=== PATIENT | female | born 1980 | race Caucasian/White ===

== ENCOUNTER → 2019-07-28 08:54 | Outpatient (CLI) | payer BC, SELFPAY ==
--- NOTE | ~2019-07-28 | CT_ITS ---
EXAMINATION: CT soft tissue neck chest wo DATE: 07/28/2019 09:32 INDICATION: R22.1 Localized swelling, mass and lump, neck TECHNIQUE: Computed tomography (CT) of the neck and chest was performed without intravenous contrast. Additional 3D reconstructions utilizing coronal maximum intensity projection (MIP) were performed. The dose-length product was 829.75 mGy-cm. COMPARISON: None FINDINGS: Neck: The BB overlies the right parotid gland which has a convex mildly bulging peripheral contour as oppos ed to the relatively straight peripheral contour of the contralateral left parotid gland which extend s further AP than the right gland. Both parotid glands demonstrate a normal appearance and appear rel atively symmetric in overall size. The submandibular glands also appear normal and symmetric. There a re scattered normal-sized lymph nodes in the neck, no lymphadenopathy. No masses identified. Thyroid gland is normal. Vasculature appears unremarkable on noncontrast imaging. Mild cervical spondylosis. Orbits are normal. Visualized mastoid air cells, middle ear cavities and paranasal sinuses are clear . Visualized portions of the brain are normal. Chest: Minimal dependent atelectasis in the bilateral lower lobes. No pneumonia/pulmonary infiltrates, suspi cious pulmonary nodules, pulmonary edema or pleural effusion. Heart size is normal. No pericardial ef fusion. Thoracic aorta is normal in caliber. No pathologically enlarged thoracic lymphadenopathy. Vis ualized upper abdomen is unremarkable. Bones are unremarkable. IMPRESSION: 1. Abnormal masses, fluid collections or pathologically enlarged lymphadenopathy. The lump of concern appears to correspond to the right parotid gland which appears normal and relatively symmetric in vo lume to the left gland but with a more prominent convex peripheral margin. Reviewed, dictated and finalized at location A. PROCESSING TECHNICIAN IMPRESSION: 1. Abnormal masses, fluid collections or pathologically enlarged lymphadenopath y. The lump of concern appears to correspond to the right parotid gland which a ppears normal and relatively symmetric in volume to the left gland but with a m ore prominent convex peripheral margin.
== END ==
PROVIDERS: PCP Family Medicine; Visit Provider Family Medicine
DX: R22.1 Localized swelling, mass and lump, neck (principal)
CPT/HCPCS: 70490; 71250

== ENCOUNTER → 2021-04-12 02:19 | Outpatient (CLI) | payer BC, SELFPAY ==
[2021-04-12 18:47] LABS: SARS-CoV-2 RNA PCR Positive
== END ==
PROVIDERS: Nurse Practitioner Gerontology; PCP Family Medicine; Visit Provider Family Medicine
DX: U07.1 COVID-19 (principal)
CPT/HCPCS: C9803; U0003; U0005

== ENCOUNTER → 2021-06-01 07:57 | Outpatient (CLI) | payer BC, SELFPAY ==
--- NOTE | ~2021-06-01 | MMUS_ITS ---
EXAMINATION: MM diagnostic dominique BI w blossom, US breast LT limited HISTORY: Palpable lump in the upper outer quadrant of the left breast TECHNIQUE: Craniocaudal, mediolateral, and mediolateral oblique 3-D tomosynthesis images of the left breast were performed and synthetic 2-D images were generated. CAD analysis was submitted and interpr eted. High resolution limited left breast ultrasound was performed. COMPARISON: 10/09/2017 BREAST PARENCHYMAL COMPOSITION: The breasts are heterogeneously dense, which may obscure small masses . FINDINGS: MAMMOGRAPHIC FINDINGS: There is no evidence of suspicious mass, calcification, or architectural distortion in either breast to suggest malignancy. There has been no suspicious interval change. No mammographic correlate is id entified for the reported palpable abnormality of the left breast. ULTRASOUND: There is no evidence of focal abnormal solid or cystic mass in the vicinity of the reported palpable abnormality of the left breast IMPRESSION: 1. No specific mammographic or sonographic correlate is identified for the reported palpable abnormal ity of concern. Further evaluation at this time should be based on clinical assessment. Continued fol low-up physical examination is recommended. 2. Recommend routine screening mammography beginning at age 40. BI-RADS Category 1: Negative Reviewed, dictated and finalized at location A. TARY INSPECTOR IMPRESSION: 1. No specific mammographic or sonographic correlate is identified for the repo rted palpable abnormality of concern. Further evaluation at this time should be based on clinical assessment. Continued follow-up physical examination is bette mmended. 2. Recommend routine screening mammography beginning at age 40. BI-RADS Category 1: Negative
== END ==
PROVIDERS: PCP Family Medicine; Visit Provider Nurse Practitioner
DX: N63.20 Unspecified lump in the left breast, unspecified quadrant (principal)
CPT/HCPCS: 76642; 77062; 77066; G0279

== ENCOUNTER 2022-04-03 10:32 | Outpatient (CLI) | payer BC, SELFPAY ==
--- NOTE | ~2022-04-03 | XR_ITS ---
EXAMINATION: XR chest 2V Exam Date/Time: 04/03/2022 10:41 WAFER FABRICATOR HISTORY: ANTERIOR LEFT BREAST/CHEST WALL PAIN Comparison: 01/15/2013. RESULT: Lines, tubes, and devices: None. Lungs and pleura: Clear. Cardiomediastinal silhouette: Stable. Other: No acute osseous or upper abdominal finding. IMPRESSION: No acute cardiopulmonary process. Reviewed, dictated and finalized at location K. R FABRICATOR
== END 2022-04-03 10:33 | disposition home or self-care (01) ==
LOC: ANHIMG 10:34
PROVIDERS: PCP Family Medicine; Visit Provider Family Medicine
DX: R09.89 Other specified symptoms and signs involving the circulatory and respiratory systems (principal)
CPT/HCPCS: 71046

== ENCOUNTER 2022-05-04 09:31 | Outpatient (CLI) | payer BC, SELFPAY ==
--- NOTE | ~2022-05-04 | XR_ITS ---
EXAMINATION: XR abdomen/kub 1V INDICATION: Bilateral flank pain TECHNIQUE: Supine views of the abdomen were obtained on 2 radiographs. COMPARISON: None FINDINGS: The bowel gas pattern is normal. There is a moderate volume of colonic stool. The visualize d osseous structures are unremarkable. An IUD is noted. IMPRESSION: 1. No radiographic correlate for the patient's symptoms. Reviewed, dictated and finalized at location A. TATION MANAGER
[2022-05-04 10:29] LABS: Basophils Absolute Auto 0.1 K/mm3 (0.0-0.1); Basophils Percent Auto 0.9 % (0.2-1.2); Eosinophils Absolute Auto 0.2 K/mm3 (0-0.3); Eosinophils Percent Auto 2.7 % (0-4.4); Hematocrit 42.4 % (37.0-47.0); Hemoglobin 13.8 g/dL (12.0-15.0); Immature Granulocyte Absolute 0.01 K/mm3 (0.00-0.031); Immature Granulocyte Percent A 0.1 % (0-0.5); Lymphocytes Absolute Auto 2.13 K/mm3 (0.9-3.2); Lymphocytes Percent Auto 30.6 % (18.3-44.2); Mean Corpuscular HGB Conc 32.5 g/dl (32-36); Mean Corpuscular Hemoglobin 30.3 pg (26-34); Mean Platelet Volume 12.9 fl (7.4-10.4); Monocytes Absolute Auto 0.6 K/mm3 (0.1-0.6); Monocytes Percent Auto 8.1 % (2.6-8.5); Neutrophils Percent Auto 57.6 % (45.5-73.1); Platelet Count Result 195 k/mm3 (150-375); Red Blood Count 4.56 M/mm3 (4.2-5.4); Red Cell Distribution Width 12.7 % (11.5-14.5)
[2022-05-04 10:42] LABS: Alanine Aminotransferase 20 U/L (6-35); Albumin Level 4.4 g/dL (3.5-5.1); Alkaline Phosphatase 95 U/L (38-126); Anion Gap 6 mmol/L (8-16); Aspartate Amino Transferase 24 U/L (14-36); Bilirubin,Total 0.4 mg/dL (0.2-1.3); Blood Urea Nitrogen 14 mg/dL (7-17); Carbon Dioxide 29 mmol/L (22-30); Chloride 102 mmol/L (98-107); Estimated Glomerular Filt Rate > 60; Glucose 88 mg/dL (65-110); Potassium 4.2 mmol/L (3.4-5.0); Sodium 137 mmol/L (137-145)
[2022-05-04 11:20] LABS: Hemoglobin A1C 5.3 % (<5.7)
== END 2022-05-04 09:32 | disposition home or self-care (01) ==
LOC: ANHIMG 09:35
PROVIDERS: PCP Family Medicine; Visit Provider Physician Assistant
DX: R10.9 Unspecified abdominal pain (principal); R63.1 Polydipsia
CPT/HCPCS: 36415; 74018; 80053; 83036; 85025

== ENCOUNTER 2022-07-04 15:06 | Outpatient (CLI) | payer OTHER, SELFPAY ==
--- NOTE | ~2022-07-04 | XR_ITS ---
Lumbosacral Spine: AP and lateral views Clinical History: Pain Findings: The normal lordotic curve is maintained. The vertebral bodies and posterior elements are i ntact. The intervertebral disc spaces are preserved. There is minimal facet arthropathy at L4-L5 and L5-S1. The sacroiliac joints are normally outlined. Impression: Minimal facet joint arthropathy at the lower lumbar spine, as detailed above. Reviewed, dictated and finalized at location M. UP WORKER Impression: Minimal facet joint arthropathy at the lower lumbar spine, as detailed above.
--- NOTE | ~2022-07-04 | XR_ITS ---
Cervical Spine: AP, lateral, open-mouth views Clinical History: Pain Findings: The normal lordotic curve is maintained. The vertebral bodies and posterior elements appea r intact. The intervertebral disc spaces are well maintained. Pre-vertebral soft tissues are unremar kable. Impression: No significant abnormality is seen. Reviewed, dictated and finalized at [facility]. TOR MEDICAL CLAIMS Impression: No significant abnormality is seen.
--- NOTE | ~2022-07-04 | XR_ITS ---
Thoracic spine: Clinical Indication: Pain AP and lateral views were performed. No fracture is seen. There is normal alignment of the vertebrae. The intervertebral disc spaces appe ar normal. Paravertebral soft tissues appear normal. Impression: No significant abnormalities noted. Reviewed, dictated and finalized at [facility]. IGURATION ENGINEER Impression: No significant abnormalities noted.
== END 2022-07-04 15:07 | disposition home or self-care (01) ==
PROVIDERS: PCP Family Medicine; Visit Provider Nurse Practitioner Gerontology
DX: M54.9 Dorsalgia, unspecified (principal)
CPT/HCPCS: 72040; 72070; 72100

== ENCOUNTER 2022-08-15 10:05 | Emergency (ER) | payer BC, SELFPAY ==
--- NOTE | ~2022-08-15 | XR_ITS ---
XR chest 2V DATE: 08/15/2022 10:30 INDICATION: Syncope, loss of consciousness. TECHNIQUE: PA and lateral views COMPARISON: 04/13/2022 PA and lateral chest FINDINGS: Normal heart size. No hilar or mediastinal enlargement. No pulmonary infiltrate or consolidation, pleural effusion or pulmonary vascular congestion or pneumo thorax. IMPRESSION: No active cardiopulmonary disease Reviewed, dictated and finalized at location B.
--- NOTE | ~2022-08-15 | CT_ITS ---
Non-contrast Head CT History: Dizziness Technique: Axial non-contrast imaging of the brain was performed. Dose reduction technique was used on this scan by utilizing automated exposure control and iterative reconstruction technique. The dose -length product (DLP) was 605.33 mGy-cm. Findings: There is no evidence of intracranial hemorrhage, mass lesion, or acute infarct. Brain par enchyma appears normal. The ventricles and subarachnoid spaces are normal in size. The calvarium ap pears normal. The visualized paranasal sinuses and mastoid air cells are clear. Impression: No significant abnormality seen. Reviewed, dictated and finalized at location . Impression: No significant abnormality seen.
--- NOTE | 2022-08-15 10:08 | ECG_ITS ---
Measurements Intervals [place] Rate: 82 P: 33 IA: 150 QRS: -12 QRSD: 98 T: 22 QT: 364 QTc: 426 Interpretive Statements SINUS RHYTHM BORDERLINE R WAVE PROGRESSION, ANTERIOR LEADS BASELINE ARTIFACT- I, II, III BORDERLINE ECG NO PREVIOUS ECG AVAILABLE FOR COMPARISON Electronically Signed On 08-15-2022 14:16:37 CDT by Delgado Lozano D.O.
[2022-08-15 10:09] VITALS: BP 152/102; PULSE 80; RESP 16; TEMP 36.6; O2SAT 98
[2022-08-15 10:20] LABS: Basophils Percent Auto 0.7 % (0.2-1.2); Eosinophils Absolute Auto 0.2 K/mm3 (0-0.3); Eosinophils Percent Auto 3.6 % (0-4.4); Hematocrit 43.1 % (37.0-47.0); Hemoglobin 14.1 g/dL (12.0-15.0); Immature Granulocyte Absolute 0.01 K/mm3 (0.00-0.031); Immature Granulocyte Percent A 0.2 % (0-0.5); Lymphocytes Absolute Auto 1.43 K/mm3 (0.9-3.2); Lymphocytes Percent Auto 25.7 % (18.3-44.2); Mean Corpuscular HGB Conc 32.7 g/dl (32-36); Mean Corpuscular Hemoglobin 30.6 pg (26-34); Mean Corpuscular Volume 93.5 fl (80-100); Mean Platelet Volume 12.8 fl (7.4-10.4); Monocytes Absolute Auto 0.4 K/mm3 (0.1-0.6); Monocytes Percent Auto 7.4 % (2.6-8.5); Neutrophils Absolute Auto 3.5 K/mm3 (1.3-6.7); Neutrophils Percent Auto 62.4 % (45.5-73.1); Platelet Count Result 187 k/mm3 (150-375); Red Blood Count 4.61 M/mm3 (4.2-5.4); Red Cell Distribution Width 12.4 % (11.5-14.5); White Blood Count 5.6 K/mm3 (4.5-10.0)
[2022-08-15 10:31] LABS: Prothrombin Time 12.9 Seconds (11.1-14.7)
[2022-08-15 10:32] LABS: Partial Thromboplastin Time 28.8 SECONDS (22.3-36.8)
[2022-08-15 10:42] VITALS: BP 124/77; PULSE 70
[2022-08-15 10:43] VITALS: BP 121/90; PULSE 78
[2022-08-15 10:44] VITALS: BP 125/85; PULSE 86
[2022-08-15 10:45] LABS: Alanine Aminotransferase 20 U/L (6-35); Albumin Level 4.4 g/dL (3.5-5.1); Alkaline Phosphatase 87 U/L (38-126); Anion Gap 6 mmol/L (8-16); Aspartate Amino Transferase 24 U/L (14-36); Bilirubin,Total 0.7 mg/dL (0.2-1.3); Blood Urea Nitrogen 12 mg/dL (7-17); Carbon Dioxide 29 mmol/L (22-30); Chloride 105 mmol/L (98-107); Estimated CRCL calculation 102 ml/min; Estimated Glomerular Filt Rate > 60; Glucose 109 mg/dL (65-110); Lipase 277 U/L (23-300); Potassium 4.7 mmol/L (3.4-5.0); Sodium 140 mmol/L (137-145)
[2022-08-15 10:56] LABS: Troponin I < 0.012 ng/mL (0.000-0.034)
[2022-08-15] MEDS: SODIUM CHLORIDE 0.9% IV 1,000 ML 999 ML IV CONT (10:58)
--- NOTE | 2022-08-15 11:00 | ED.DIZZY ---
HPI - Dizziness General Chief Complaint: Dizziness Stated Complaint: near syncope Time Seen by Provider: 08/15/22 10:35 Source: patient Mode of arrival: EMS Limitations: no limitations History of Present Illness HPI Narrative: This is a 41 year old female that presents to the ER for near syncopal episode this morning while at work. Reports she was seated at her desk and started to feel lightheaded. Reports associated nausea and vomiting. She had a similar episode a couple weeks ago for which she was evaluated at another ER. Reports she still does have some mild lightheadedness. Otherwise denies any current symptoms. Denies fever, cough, chest pain, shortness of breath, or lower extremity edema. Related Data Home Medications Medication Instructions Recorded Confirmed levonorgestrel 21 mcg/24 hours (8 1 device intrauterine ONCE 07/22/20 07/22/22 yrs) 52 mg intrauterine device (Mirena) Allergies Allergy/AdvReac Type Severity Reaction Status Date / Time erythromycin base Allergy Mild unknown Verified 08/15/22 10:55 Review of Systems Review of Systems: CONSTITUTIONAL: Denies fever CARDIOVASCULAR: Denies chest pain, palpitations, or edema. RESPIRATORY: Denies cough or dyspnea. GASTROINTESTINAL: Reports nausea and vomiting. Denies abdominal pain All systems reviewed & are unremarkable except as noted in HPI and below PMFSH Past Medical History Medical History Acute serous otitis media, bilateral Acute sinusitis, unspecified Acute strain of neck muscle Chronic pansinusitis Chronic tonsillitis Contact dermatitis and eczema Dietary counseling and surveillance (09/02/17) Dizziness Dyshidrosis Head, face & neck injury Lateral dislocation of right patella, sequela Pain of right heel URI, acute Surgical History Surgical History Hx of tonsillectomy Family History Family History Mother Hypertension Sibling Patient's brother is in good health Family history of kidney disease Father Cerebrovascular accident, Onset Age: 53 Patient's father is Grandparent Family history of thyroid disease Social History Social History (Updated 07/12/22 @ 14:34 by Lisette Coto) Social History: Years smoked: 5 Smoking status: Former smoker Second hand tobacco smoke exposure: No Alcohol intake: current Alcohol use details: Occasionally Substance use: never Substance use type: does not use Lack of Transportation: YES Lack of Food: Never True Current Housing: I Have Housing Concerned About Future Housing: No Difficulty Paying Gas/Electric Bills: No Difficulty Paying for Meds: No Currently Unemployed: No Education: Master's Degree or Higher Difficulty w/ Childcare or Family Care: No Living arrangements: with family Occupation/Education: occupation Gender identity (if verbalized by the patient): Female Sexual Orientation (if Verbalized by the Patient): Straight or Heterosexual Spiritual care concerns: No Agree to blood products: Yes Exam Narrative: GENERAL: Well-appearing, well-nourished, and in no acute distress. HEAD: Normocephalic, atraumatic. EYES: EOMI. ENT: Nares clear, no rhinorrhea or epistaxis. Mucous membranes moist. Oropharynx without tonsillar hypertrophy exudate or other lesions. CHEST: Clear to auscultation. No respiratory distress. No wheezes rales or rhonchi HEART: Regular rate and rhythm. No murmur heard. Normal peripheral pulses. ABDOMEN: Soft, nontender, nondistended, normal active bowel sounds. EXTREMITIES: Normal range of motion. No edema. SKIN: Warm, dry, no rash. NEURO: No focal deficits. Alert and oriented x3. PSYCH: Normal mood and affect Course Course Emergency Course: Patient was updated on workup and agrees with plan of care Vital Signs Vital signs: Kimmy
[2022-08-15 14:17] VITALS: BP 129/89; PULSE 75; RESP 19; O2SAT 99
== END 2022-08-15 14:18 | disposition home or self-care (01) ==
PROVIDERS: General Practice; Emergency Provider Physician Assistant; PCP Family Medicine
DX: R55 Syncope and collapse (principal)
CPT/HCPCS: 36415; 70450; 71046; 80053; 81025; 83690; 84484; 85025; 85610; 85730; 93005; 96360; 99284; J7030

== ENCOUNTER 2022-09-05 02:50 | Day surgery (SDC) | payer BC, SELFPAY ==
[2022-08-21 13:30] VITALS: BMI 34.0
--- NOTE | 2022-09-04 14:58 | PM.HPGS ---
History of Present Illness History of Present Illness Consent: Risks, benefits, and alternatives have been discussed and questions answered. Patient agrees to proceed with procedure. Chief complaint: vomiting Narrative: Priya Colby is a 41 year old female who was referred because-repeated episodes of sharp epigastric pain accompanied by nausea and vomiting. She has been to the emergency room on 2 occasions with these symptoms. She has not had an occurrence since her last visit to the emergency room. She thought that this may be related to the fact that she had lost weight and probably does not need her blood pressure medicine anymore. On both occasions she became sweaty and nauseated before vomiting. She does not believe that she has had her gallbladder checked Review of Systems Review of Systems: All systems reviewed & are unremarkable except as noted in HPI and below PMFSH Past Medical History Medical History Acute serous otitis media, bilateral Acute sinusitis, unspecified Acute strain of neck muscle Benign essential HTN BMI 36.0-36.9,adult Chronic pansinusitis Chronic tonsillitis Contact dermatitis and eczema Dietary counseling and surveillance (09/02/17) Dizziness Dyshidrosis Head, face & neck injury Lateral dislocation of right patella, sequela Pain of right heel URI, acute Surgical History Surgical History Hx of tonsillectomy Family History Family History Mother Hypertension Sibling Patient's brother is in good health Family history of kidney disease Father Cerebrovascular accident, Onset Age: 53 Patient's father is Grandparent Family history of thyroid disease Social History Social History Social History: Years smoked: 5 Smoking status: Former smoker Tobacco type: cigarettes Second hand tobacco smoke exposure: No Alcohol intake: current Alcohol use details: Occasionally Substance use: never Substance use type: does not use Lack of Transportation: YES Lack of Food: Never True Current Housing: I Have Housing Concerned About Future Housing: No Difficulty Paying Gas/Electric Bills: No Difficulty Paying for Meds: No Currently Unemployed: No Education: Master's Degree or Higher Difficulty w/ Childcare or Family Care: No Living arrangements: with family Occupation/Education: occupation Gender identity (if verbalized by the patient): Female Sexual Orientation (if Verbalized by the Patient): Straight or Heterosexual Spiritual care concerns: No Agree to blood products: Yes Meds Home Medications and Allergies Home Medications Medication Instructions Recorded Confirmed Type levonorgestrel 21 mcg/24 hours (8 1 device intrauterine ONCE 07/22/20 08/21/22 History yrs) 52 mg intrauterine device (Mirena) cholecalciferol (vitamin D3) 125 125 mcg PO DAILY 08/16/22 08/21/22 History mcg (5,000 unit) capsule triamcinolone acetonide 55 mcg 1 spray intranasal DAILY 08/16/22 08/21/22 History nasal spray aerosol (Nasacort Allergy) zinc 50 mg tablet 50 mg PO DAILY 08/16/22 08/21/22 History Allergies Allergy/AdvReac Type Severity Reaction Status Date / Time erythromycin base Allergy Mild unknown Verified 09/05/22 08:10 Exam Const: General: alert Orientation/consciousness: patient oriented x3 Resp: Auscultation: clear to auscultation bilaterally Cardio: Rhythm: regular rhythm GI: GI Palp: Yes Soft to palpation and No Tenderness to palpation present (GI) Neuro: General: patient oriented x3 Assessment and Plan Assessment and plan (1) Vomiting: Code(s): R11.10 - Vomiting, unspecified Status: Acute Assessment and Plan: EGD with possible biopsy or dilatati
[2022-09-05 08:12] VITALS: BP 139/95; PULSE 79; RESP 18; TEMP 36.3; O2SAT 98
[2022-09-05] MEDS: LACTATED RINGERS 1,000 ML 150 ML IV CONT (08:20)
--- NOTE | 2022-09-05 08:29 | WPDANESEPPF ---
Anes - Initial Pre Proc Eval Procedure: Operation Date: 09/05/22 09:30 Proposed Procedures p Esophagogastroduodenoscopy - Stuart Chauhan MD Date/Time: 09/05/22 08:29 Surgeon: Stuart Chauhan MD Pre Op Diagnosis: vomiting Patient Data Age: 41 Gender: F Height: 1.73 m Weight: 101.4 kg Last Vital Signs Temp 36.3 C L 09/05/22 08:12 Pulse 79 09/05/22 08:12 Resp 18 09/05/22 08:12 BP 139/95 H 09/05/22 08:12 Pulse Ox 98 09/05/22 08:12 O2 Del Method Room Air 09/05/22 08:12 Allergies Allergy/AdvReac Type Severity Reaction Status Date / Time erythromycin base Allergy Mild unknown Verified 09/05/22 08:10 Home Medications Medication Instructions Recorded Confirmed Type levonorgestrel 21 mcg/24 hours (8 1 device intrauterine ONCE 07/22/20 08/21/22 History yrs) 52 mg intrauterine device (Mirena) cholecalciferol (vitamin D3) 125 125 mcg PO DAILY 08/16/22 08/21/22 History mcg (5,000 unit) capsule triamcinolone acetonide 55 mcg 1 spray intranasal DAILY 08/16/22 08/21/22 History nasal spray aerosol (Nasacort Allergy) zinc 50 mg tablet 50 mg PO DAILY 08/16/22 08/21/22 History Patient hx anesthesia problems: none Family hx anesthesia problems: none Results Review: All pre-operative results and documents have been reviewed as part of the pre-operative evaluation. [facility] Past Medical History Medical History (Updated 09/05/22 @ 08:30 by Khadar Aquino MD) Acute serous otitis media, bilateral Acute sinusitis, unspecified Acute strain of neck muscle Benign essential HTN BMI 36.0-36.9,adult Chronic pansinusitis Chronic tonsillitis Contact dermatitis and eczema Dietary counseling and surveillance (09/02/17) Dizziness Dyshidrosis Head, face & neck injury Lateral dislocation of right patella, sequela Pain of right heel URI, acute Surgical History Surgical History Hx of tonsillectomy Family History Family History Mother Hypertension Sibling Patient's brother is in good health Family history of kidney disease Father Cerebrovascular accident, Onset Age: 53 Patient's father is Grandparent Family history of thyroid disease Social History Social History Social History: Years smoked: 5 Smoking status: Former smoker Tobacco type: cigarettes Second hand tobacco smoke exposure: No Alcohol intake: current Alcohol use details: Occasionally Substance use: never Substance use type: does not use Lack of Transportation: YES Lack of Food: Never True Current Housing: I Have Housing Concerned About Future Housing: No Difficulty Paying Gas/Electric Bills: No Difficulty Paying for Meds: No Currently Unemployed: No Education: Master's Degree or Higher Difficulty w/ Childcare or Family Care: No Living arrangements: with family Occupation/Education: occupation Gender identity (if verbalized by the patient): Female Sexual Orientation (if Verbalized by the Patient): Straight or Heterosexual Spiritual care concerns: No Agree to blood products: Yes Anes - Eval Final PreProcedure Day of Procedure 09/05/22 08:29 Patient weight: obese Heart: regular rate and rhythm Lungs: clear to auscultation and normal air movement Airway: Mallampati scale class II Neurological: alert and oriented Last oral intake: >/= 8 hours ASA classification: III Emergent: no Anesthetic plan: proceed Anesthesia type and monitoring: general GIVS Results Review: All pre-operative results and documents have been reviewed as part of the pre-operative evaluation. Informed Consent: The patient's anesthetic plan and its attendant risks and benefits were discussed with the patient/family/POA. Questions were solicited and answers provided to the satisfaction of the kathleen
[2022-09-05] MEDS: BENZOCAINE (*SP) 60 ML SPRAY CAN (HURRICAINE) 1 SPRAY MUCOUS MEM (09:11)
[2022-09-05 09:17] VITALS: BP 126/89; PULSE 75; RESP 16; O2SAT 99
[2022-09-05 09:27] VITALS: BP 140/107; BP 150/110; PULSE 72; RESP 16; O2SAT 100; O2SAT 99
== END 2022-09-05 09:41 | disposition home or self-care (01) ==
PROVIDERS: PCP Family Medicine; Visit Provider Internal Medicine Gastroenterology
PROC: 0DJ08ZZ Inspection of Upper Intestinal Tract, Via Natural or Artificial Opening Endoscopic (ICD-10-PCS; CPT 43235; principal; 2022-09-05 09:30)
DX: R11.2 Nausea with vomiting, unspecified (principal); R10.13 Epigastric pain; E66.9 Obesity, unspecified; Z68.34 Body mass index [BMI] 34.0-34.9, adult
CPT/HCPCS: 43239; 87081; J2704; J7120

== ENCOUNTER 2024-02-06 15:27 | Outpatient (CLI) | payer BC, SELFPAY ==
--- NOTE | ~2024-02-06 | XR_ITS ---
EXAMINATION: XR abdomen obstructive series DATE: 02/06/2024 15:53 INDICATION: Left abdominal pain. TECHNIQUE: Upright and supine views of the abdomen on 3 radiographs were obtained. COMPARISON: Abdomen radiographs 05/04/2022 FINDINGS: There are no dilated loops of bowel. There is a small volume of stool in the colon. No free intraperitoneal gas. There is an intrauterine device in expected position. IMPRESSION: 1. Normal bowel gas pattern. Reviewed, dictated and finalized at location A.
== END 2024-02-06 15:28 | disposition home or self-care (01) ==
LOC: ANHIMG 15:31
PROVIDERS: PCP Family Medicine; Visit Provider Family Medicine
DX: R14.0 Abdominal distension (gaseous) (principal)
CPT/HCPCS: 74019

== ENCOUNTER 2024-04-16 11:28 | Outpatient (CLI) | payer BC, SELFPAY ==
--- NOTE | ~2024-04-16 | CT_ITS ---
CT of the Abdomen and Pelvis: Indication: Abdominal pain Technique: 2.5 mm axial scans were obtained through the abdomen and pelvis following intravenous adm inistration of 100 cc of Omnipaque 350. Dose reduction technique was used on this scan by utilizing a utomated exposure control and iterative reconstruction technique. The dose-length product (DLP) was 1 170.89 mGy-cm. Findings: Scans through the lung bases are unremarkable. The liver, spleen, pancreas, gallbladder, adrenals and kidneys are within normal limits. No evidence of aortic aneurysm. No lymphadenopathy. There is colonic wall thickening and inflammatory change of the distal descending colon with underlyi ng diverticular disease, compatible with acute diverticulitis. No abscess or free air. No bowel obstr uction. Images through the pelvis were performed. Urinary bladder unremarkable. IUD in place. 4 cm right ovar antonio cyst present. Impression: Acute diverticulitis of the distal descending colon. No abscess or free air. No bowel obstruction. 4 cm right ovarian cyst. Reviewed, dictated and finalized at [facility]. TS MARKETING COORDINATOR Impression: Acute diverticulitis of the distal descending colon. No abscess or free air. No bowel obstruction. 4 cm right ovarian cyst.
[2024-04-16 12:23] LABS: Basophils Absolute Auto 0.1 K/mm3 (0.0-0.1); Basophils Percent Auto 0.4 % (0.2-1.2); Eosinophils Absolute Auto 0.2 K/mm3 (0-0.3); Eosinophils Percent Auto 1.5 % (0-4.4); Hematocrit 43.5 % (37.0-47.0); Hemoglobin 14.4 g/dL (12.0-15.0); Immature Granulocyte Absolute 0.06 K/mm3 (0.00-0.031); Immature Granulocyte Percent A 0.4 % (0-0.5); Lymphocytes Absolute Auto 2.48 K/mm3 (0.9-3.2); Lymphocytes Percent Auto 15.1 % (18.3-44.2); Mean Corpuscular HGB Conc 33.1 g/dl (32-36); Mean Corpuscular Hemoglobin 30.1 pg (26-34); Mean Corpuscular Volume 90.8 fl (80-100); Monocytes Absolute Auto 1.3 K/mm3 (0.1-0.6); Monocytes Percent Auto 7.8 % (2.6-8.5); Neutrophils Absolute Auto 12.3 K/mm3 (1.3-6.7); Neutrophils Percent Auto 74.8 % (45.5-73.1); Platelet Count Result 211 k/mm3 (150-375); Red Blood Count 4.79 M/mm3 (4.2-5.4); Red Cell Distribution Width 12.9 % (11.5-14.5); White Blood Count 16.4 K/mm3 (4.5-10.0)
== END 2024-04-16 11:29 | disposition home or self-care (01) ==
PROVIDERS: PCP Family Medicine; Visit Provider Student in an Organized Health Care Education/Training Program
DX: N83.201 Unspecified ovarian cyst, right side (principal); K57.32 Diverticulitis of large intestine without perforation or abscess without bleeding
CPT/HCPCS: 36415; 74177; 85025; Q9967

== ENCOUNTER 2024-05-04 11:15 | Outpatient (CLI) | payer BC, SELFPAY ==
[2024-05-04 12:38] LABS: Influenza A QL RT-PCR Negative (Negative); Influenza B QL RT-PCR Negative (Negative); RSV RNA, RT-PCR Negative (Negative); SARS-CoV-2 RNA PCR Negative (Negative)
== END 2024-05-04 11:16 | disposition home or self-care (01) ==
PROVIDERS: PCP Family Medicine; Visit Provider Student in an Organized Health Care Education/Training Program
DX: U07.1 COVID-19 (principal)
CPT/HCPCS: 87637

== ENCOUNTER 2024-12-14 12:06 | Outpatient (CLI) | payer BC, SELFPAY ==
--- NOTE | ~2024-12-14 | XR_ITS ---
EXAM/ PROCEDURE: XR elbow RT min 3V - 12/14/2024 12:23 CDT HISTORY: 43 years old Female with M25.521 - Pain in right elbow COMPARISON: None available TECHNIQUE: Four view(s) FINDINGS/ IMPRESSION: There are no fractures or dislocations.Joint spaces are within normal limits. Reviewed, dictated and finalized at location A.
== END 2024-12-14 12:07 | disposition home or self-care (01) ==
PROVIDERS: PCP Family Medicine; Visit Provider Physician Assistant Medical
DX: M25.521 Pain in right elbow (principal)
CPT/HCPCS: 73080

== ENCOUNTER 2025-03-23 08:30 | Outpatient (RCR) | payer BC, SELFPAY ==
--- NOTE | 2025-01-07 16:36 | OTOPEVAL1 ---
Assessment and note entered by Anahi Gil, OT Evaluation Information Assessment Status Evaluation Diagnosis lateral epicondylitis, radial tunnel syndrome ICD-10 Condition Codes (OT) Pain in right elbow M25.521 Other ICD-10 Condition Codes ( M77.11., M77.8 OT) Onset ~ a couple months ago Subjective Information Pt. reports she has had tendonitis in the past, but she reports this time it is worse, The pain itself is different this time. 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 Pt. reports that certain movements with cause a very sharp pain, otherwise consistently aching, even at rest. Pt. reports anything that requires elbow flexion and lifting, pushing, pt. reports she cannot vacuum, open and closing doors, putting her bra on behind her back, opening jars, picking up water mug, and playing pickle ball. Pt. also reports this also compromises job safety due to having to hold and possibly use a gun. Reported Pain Level Pain Score 2: Self Report Assessment OT Clinical Summary Pt. is 44 year F, referred to outpatient therapy due to R elbow pain with diagnosis of R Radial Tunnel Syndrome and R lateral epicondylitis. Pt. demonstrates positive Cozen test and increased pain and unable to bring radial nerve to full tension without increased pain, this has resulted in increasing weakness of R (dominant) upper extremity and limits participation and safety in daily activity and work related responsibilities. Pt. will benefit from skilled OT services including therapeutic exercise and activities and use of therapeutic modalities to reduce pain, increased functional movement, increased strength, and return to previous level of function and capacity for daily activity. Plan of Care Interventions Therapeutic Exercise,Manual Therapy,Therapeutic Activities,Hot Pack/Cold Pack,Self-Care/Home Management,Check Out for Orthotic/Prosthetic OT Services Indicated Yes Treatment Frequency and 2 x/ week for 6 visits Duration These treatments will address the objective and functional deficits as defined above. The patient will be advanced safely and appropriately in order for the patient to progress towards his/her prior level of function. Additional exercises will be introduced and as well as a comprehensive home exercise program upon discharge, if needed, ?to ensure carryover of functional gains achieved in the clinic. This treatment plan has been reviewed and agreement upon by the patient.
--- NOTE | 2025-01-07 16:36 | OPREHPOC ---
Outpatient Therapy Plan of Care This is a Multidisciplinary Plan of Care that may contain components documented by all disciplines (PT, OT, and ST.) OT Problem 1 OT Problem #1 Knowledge Deficit OT Goal 1 Goal / Goal Update Pt. will demonstrate independence in HEP Target Visit 6 OT Problem 2 OT Problem #2 Pain OT Goal 1 Goal / Goal Update Pt. will report pain < 1/10 at rest and during activity 5/7 days per week Target Visit 12 OT Problem 3 OT Problem #3 Impaired Strength OT Goal 1 Goal / Goal Update Pt. will demonstrate increase of R UE measurement supervisor and pinch strengths by 20 and 5 lbs respectively Target Visit 12
--- NOTE | 2025-01-29 16:16 | OTOPPROG ---
Assessment and note entered by Anahi Gil OT Progress Information Assessment Status Progress Diagnosis lateral epicondylitis, radial tunnel syndrome ICD-10 Condition Codes (OT) Pain in right elbow M25.521 Other ICD-10 Condition Codes ( M77.11., M77.8 OT) Onset ~ a couple months ago Subjective Information Pt. reports initial relief with treatment, but over the last week after pt. reports over doing it to pack for holiday weekend activities. Pt. reports she has been wearing wrist brace which initially reduced radial nerve pain, but over time increased lateral epicondylitis pain. Pt. reports she was having neck pain, stating that that has subsided and believes it was from sleeping funny The pain itself is different this time. 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 Pt. reports that she still has occasionally certain movements, specifically lifting with causing sharp pain, otherwise consistently aching, which is now mostly in the elbow Pt. reports she still cannot vacuum, put on her bra on behind her back, picking up water of coffee mug, or play pickle ball. Pt. also reports this also compromises job safety due to having to hold and possibly use a gun. Assessment OT Clinical Summary Pt. is 44 year F, presenting for progress evaluation for outpatient therapy due to R elbow pain with diagnosis of R Radial Tunnel Syndrome and R lateral epicondylitis. Pt. continues to demonstrate positive Cozen test, though reporting decrease in pain, now able to bring radial nerve to full tension without movement limiting pain, with continued weakness of R (dominant) upper extremity. This continues to limit participation and safety in daily activity and work related responsibilities compared to prior level of functional capacity. Pt. will benefit from continued skilled OT services including therapeutic exercise and activities and use of therapeutic modalities to reduce pain, increased functional movement, increased strength, and return to previous level of function and capacity for daily activity. Plan of Care Interventions Therapeutic Exercise,Manual Therapy,Therapeutic Activities,Hot Pack/Cold Pack,Self-Care/Home Management,Check Out for Orthotic/Prosthetic, Ultrasound,Paraffin OT Services Indicated Yes Treatment Frequency and 2 x/ week for 8 visits Duration These treatments will address the objective and functional deficits as defined above. The patient will be advanced safely and appropriately in order for the patient to progress towards his/her prior level of function. Additional exercises will be introduced and as well as a comprehensive home exercise program upon discharge, if needed, ?to ensure carryover of functional gains achieved in the clinic. This treatment plan has been reviewed and agreement upon by the patient.
--- NOTE | 2025-01-29 16:17 | OPREHPOC ---
Outpatient Therapy Plan of Care This is a Multidisciplinary Plan of Care that may contain components documented by all disciplines (PT, OT, and ST.) OT Problem 1 OT Problem #1 Knowledge Deficit OT Goal 1 Goal / Goal Update Pt. will demonstrate independence in HEP Progress 01/29/25 1) Goal met, continue with goal to progress addition of strengthening exercises Target Visit 14 Progress Met OT Problem 2 OT Problem #2 Pain OT Goal 1 Goal / Goal Update Pt. will report pain < 1/10 at rest and during activity 5/7 days per week Progress 01/29/25 1) not met, continue with goal Target Visit 14 Progress Not Met OT Problem 3 OT Problem #3 Impaired Strength OT Goal 1 Goal / Goal Update Pt. will demonstrate increase of R UE care aide and pinch strengths by 20 and 5 lbs respectively Progress 01/29/25 1) not met, continue with goal Target Visit 14 Progress Not Met
--- NOTE | 2025-02-26 10:59 | OTOPPROG ---
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 Pt. reports that she still has occasionally certain movements, specifically lifting and with increased use with causing sharp pain, otherwise soreness which is now mostly in the elbow. Pt. states it only hurts when I use it. Pt. reports she still cannot vacuum, put on her bra on behind her back, brushing her hair, while picking up water of coffee mug has become easier, but she typically compensating with use of L UE. Pt. also reports this also compromises job safety due to having to hold and possibly use a gun. Pt. also reports working 16-18 hour days, and has had high blood pressure in increased HR since Saturday of this week, which she went to the doctor for. Assessment OT Clinical Summary Pt. is 44 year F, presenting for progress evaluation for outpatient therapy due to R elbow pain with diagnosis of R Radial Tunnel Syndrome and R lateral epicondylitis. Pt. 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 This continues to limit participation and safety in daily activity and work related responsibilities compared to prior level of functional capacity. Pt. will benefit from continued skilled OT services including therapeutic exercise and activities and use of therapeutic modalities to reduce pain, increased functional movement, increased strength, and return to previous level of function and capacity for daily activity. Plan of Care Interventions Therapeutic Exercise,Manual Therapy,Therapeutic Activities,Hot Pack/Cold Pack,Self-Care/Home Management,Check Out for Orthotic/Prosthetic, Ultrasound,Paraffin OT Services Indicated Yes Treatment Frequency and 2 x/ week for 6 visits Duration These treatments will address the objective and functional deficits as defined above. The patient will be advanced safely and appropriately in order for the patient to progress towards his/her prior level of function. Additional exercises will be introduced and as well as a comprehensive home exercise program upon discharge, if needed, ?to ensure carryover of functional gains achieved in the clinic. This treatment plan has been reviewed and agreement upon by the patient.
--- NOTE | 2025-02-26 11:00 | OPREHPOC ---
Outpatient Therapy Plan of Care This is a Multidisciplinary Plan of Care that may contain components documented by all disciplines (PT, OT, and ST.) OT Problem 1 OT Problem #1 Knowledge Deficit OT Goal 1 Goal / Goal Update Pt. will demonstrate independence in HEP Progress 01/29/25 1) Goal met, continue with goal to progress addition of strengthening exercises Progress 02/26/25 1) Goal met, continue with goal to progress addition of strengthening exercises Target Visit 25 Progress Met OT Problem 2 OT Problem #2 Pain OT Goal 1 Goal / Goal Update Pt. will report pain < 1/10 at rest and during activity 5/7 days per week Progress 01/29/25 1) not met, continue with goal Progress 02/26/25 1) partially met, continue with goal Target Visit 25 Progress Partially Met OT Problem 3 OT Problem #3 Impaired Strength OT Goal 1 Goal / Goal Update Pt. 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
--- NOTE | 2025-03-23 08:30 | BUOTOPPROG ---
Assessment and note entered by Anahi Gil, OT Evaluation Information Assessment Status Progress Diagnosis lateral epicondylitis, radial tunnel syndrome ICD-10 Condition Codes (OT) Pain in right elbow M25.521 Other ICD-10 Condition Codes ( M77.11., M77.8 OT) Onset ~ a couple months ago Subjective Information Pt. reports she had a week of rest from work which reduced symptoms. Pt. was camping during which she states she had limited pain unless lifting something, specifically when picking up the camping supplies at the end of her stay. Pt. reports she has since returned to work and states I've regressed. I get up in the morning and I stretch, I don't have a ton of time, but I stretch and then I go to work for 12 hours and irritate it. I come home and put heat on it and I've been wearing a wrist brace on my days off and when I sleep at night and that helps. Pt. confirms she still cannot vacuum, put on her bra on behind her back, has difficulty brushing her hair, while picking up water of coffee mug has become easier. Pt. reports she is managing her Assessment OT Clinical Summary Pt. is 44 year F, presenting for progress evaluation for outpatient therapy due to R elbow pain with diagnosis of R Radial Tunnel Syndrome and R lateral epicondylitis. Pt. 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 This continues to limit participation and safety in daily activity and work related responsibilities compared to prior level of functional capacity. Pt. will benefit from continued skilled OT services including therapeutic exercise and activities and use of therapeutic modalities to reduce pain, increased functional movement, increased strength, and return to previous level of function and capacity for daily activity. Plan of Care Interventions Therapeutic Exercise,Manual Therapy,Therapeutic Activities,Hot Pack/Cold Pack,Self-Care/Home Management,Check Out for Orthotic/Prosthetic, Ultrasound,Paraffin OT Services Indicated Yes Treatment Frequency and 2 x/ week for 8 visits Duration These treatments will address the objective and functional deficits as defined above. The patient will be advanced safely and appropriately in order for the patient to progress towards his/her prior level of function. Additional exercises will be introduced and as well as a comprehensive home exercise program upon discharge, if needed, ?to ensure carryover of functional gains achieved in the clinic. This treatment plan has been reviewed and agreement upon by the patient.
--- NOTE | 2025-03-23 17:00 | OTOPPROG ---
Assessment and note entered by Anahi Gil, OT Assessment OT Clinical Summary Pt. is 44 year F, presenting for progress evaluation for outpatient therapy due to R elbow pain with diagnosis of R Radial Tunnel Syndrome and R lateral epicondylitis. Pt. 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 This continues to limit participation and safety in daily activity and work related responsibilities compared to prior level of functional capacity. Pt. will benefit from continued skilled OT services including therapeutic exercise and activities and use of therapeutic modalities to reduce pain, increased functional movement, increased strength, and return to previous level of function and capacity for daily activity. These treatments will address the objective and functional deficits as defined above. The patient will be advanced safely and appropriately in order for the patient to progress towards his/her prior level of function. Additional exercises will be introduced and as well as a comprehensive home exercise program upon discharge, if needed, ?to ensure carryover of functional gains achieved in the clinic. This treatment plan has been reviewed and agreement upon by the patient.
--- NOTE | 2025-03-23 17:04 | OPREHPOC ---
Outpatient Therapy Plan of Care This is a Multidisciplinary Plan of Care that may contain components documented by all disciplines (PT, OT, and ST.) OT Problem 1 OT Problem #1 Knowledge Deficit OT Goal 1 Goal / Goal Update Pt. will demonstrate independence in HEP Progress 01/29/25 1) Goal met, continue with goal to progress addition of strengthening exercises Progress 02/26/25 1) Goal met, continue with goal to progress addition of strengthening exercises Progress 03/23/25 1) Goal met, with return to previous exercises due to return of symptoms Target Visit 25 Progress Partially Met OT Problem 2 OT Problem #2 Pain OT Goal 1 Goal / Goal Update Pt. will report pain < 1/10 at rest and during activity 5/7 days per week Progress 01/29/25 1) not met, continue with goal Progress 02/26/25 1) partially met, continue with goal Progress 03/23/25 1) partially met, continue with goal Target Visit 25 Progress Partially Met OT Problem 3 OT Problem #3 Impaired Strength OT Goal 1 Goal / Goal Update Pt. will demonstrate increase of R UE tamping machine operator and pinch strengths by 20 and 5 lbs respectively Progress 01/29/25 1) not met, continue with goal Progress 02/26/25 1) partially met, increase of 9 lbs, continue with goal Progress 03/23/25 1) partially met, initially increased then returned of njury symptoms, continue with goal Target Visit 25 Progress Not Met
== END 2025-04-07 23:59 | disposition home or self-care (01) ==
LOC: ANHOT 08:30
PROVIDERS: PCP Family Medicine
DX: M77.11 Lateral epicondylitis, right elbow (principal); M77.9 Enthesopathy, unspecified
CPT/HCPCS: 97018; 97035; 97110; 97112; 97140; 97165

== ENCOUNTER 2025-03-26 08:45 | Outpatient (CLI) | payer BC, SELFPAY ==
--- OUTSIDE RECORDS SUMMARY | 2010-02-15 04:45 | XMS_ITS | Continuity of Care Document ---
Author Organization [facility] Address [address] [place] [address] [address] [place] [address] Phone Care Team Providers Care Landscape Foreman Name Role Phone Britton OD, Pasquale Unavailable Unavailable Procedures Procedure Date Eye Exam, New Patient Advance Directives Directive Yes / No Effective Date File Name No Information Encounters Encounter Description Practice Location Reason(s) For Visit Diagnoses Date Provider Providers Copied on Encounter [facility], [address] [place] [address] [address], [place], [place], [id number], [place] tel:[phone] [facility] No Information 2-201 0 Britton OD Pasquale. [address] , [address], [place], [address], [place]. tel:[phone] Family History Family Member Type Diagnosis Age At Onset No Information Payers Payer name Insurance type Covered libertarian ID Authoriza tiisamar(s) [facility] Commercial CI [id number] Social History Type Description Quantity Date Captured Comments Sex Female Smoking Status No Information Chief Complaint And Reason For Visit No Information Reason For Referral Reason For Referral No Information History Of Present Illness Encounter Date Complaint History Of Prese nt Illness No Information Functional Status Date Functional Assessmen t No Information Instructions Date Instruction Additional Infor mation No Information Assessments Type Assessment Date No Information Patient Care Teams Name Effective Dates (start - stop) Status Members No Information
--- NOTE | 2025-03-26 | ECG_ITS ---
Test Date: 2025-03-26 09:05:54 Measurements Intervals [place] Rate: 71 P: 39 UT: 147 QRS: 0 QRSD: 97 T: 22 QT: 384 QTc: 420 Interpretive Statements SINUS RHYTHM INCOMPLETE RIGHT BUNDLE BRANCH BLOCK BORDERLINE ECG No previous ECG available for comparison Electronically Signed On 03-26-2025 09:34:52 CDT by Delgado Lozano D.O.
--- OUTSIDE RECORDS SUMMARY | 2025-03-26 09:06 | XMS_ITS | Clinical Summary ---
Author Organization [facility] Address [address] [place] [id number] Care Team Providers Care Accountant Clerk Name Role Phone None, Provider Primary Care Provider Unavaila ble Allergies Active Allergy Reactions Criticality Noted Date Comments Azithromycin Unknown 11/22/2023 Medications azelastine (ASTELIN) 0.1 % nasal spray SPRAY ONCE IN EACH NOSTRIL EVERY 12 HOURS 07/24/2023 Active cetirizine (CETIRIZINE HCL CHILDRENS ALRGY) 5 MG/5ML Solution Take by mouth daily. Active Active Problems No known active problems Social History Tobacco Use Types Packs/Day Years Used Date Smoking Tobacco: Former Cigarettes Passive Smoke Exposure: Past Smokeless Tobacco: Never Tobacco Cessation:Counseling Given: No Alcohol Use Standard Drinks/Week Comments Yes 0 (1 standard drink = 0.6 oz pur e alcohol) social PHQ-2 Answer Date Recorded Patient Health Questionnaire-2 Score 0 11/22/2023 Comments No Sex and Gender Information Value Date Recorded Sex Assigned at Not on file Legal Sex Female 10:00 AM CDT Gender Identity Not on file Sexual Orientation Not on file Last Filed Vital Signs Vital Sign Reading Time Taken Comments Blood Pressure 128/86 11/22/2023 10:38 AM CDT Pulse 84 11/22/2023 10:38 AM CDT Temperature 36.7 C (98.1 F) 11/22/2023 10:38 AM CDT Respiratory Rate 20 11/22/2023 10:38 AM CDT Oxygen Saturation 97% 11/22/2023 10:38 AM CDT Inhaled Oxygen Concentration - - Weight 107.5 kg (237 lb) 11/22/2023 10:38 AM CDT Height - - Body Mass Index - - Plan of Treatment Health Maintenance Due Date Last Done Comments Cervical Cancer Screening Pa p Smear (Age 30 to 64) Every 3 Years 1982 Annual Physical 1985 Hepatitis C 2000 DTaP, Tdap and Td Vaccines ( 1 - Tdap) 2001 Hepatitis B Vaccines (1 of 3 - 19+ 3-dose series) 2001 HPV Vaccines (1 - 3-dose SCD M series) 2009 Cervical Cancer Screening Pa p with HPV Testing (Age 30 to 64) Every 5 Years 2012 Cervical Cancer Screening with HPV 2012 Mammogram Screening 2022 PHQ-2 (Physician [place]) 05/27/2024 11/22/2023 COVID-19 Vaccine (1 - 2024-2 6 season) 2025 Influenza Adult (#1) 2025 Hepatitis A Vaccines Aged Out No long er eligible based on patient's age to complete this topic Meningococcal B Vaccine Aged Out No l onger eligible based on patient's age to complete this topic Meningococcal Vaccine Aged Out No collin mabel eligible based on patient's age to complete this topic Pneumococcal Vaccine: Pediat rics (0 to 5 Years) and At-Risk Patients (6 to 49 Years) Aged Out No longer eligi ble based on patient's age to complete this topic RSV Immunizations Under 20 Months Aged Out No longer eligible based on patient's age to complete this topic Insurance [employer] Care Teams Accountant Clerk Relationship Specialty Start Date End Date None, Provider, MD PCP - General UNKNOWN PHYSICIAN SPECIALTY 11/22/23
--- OUTSIDE RECORDS SUMMARY | 2025-03-26 09:06 | XMS_ITS | Clinical Summary ---
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 Name Role Phone Lakshmi Julio MD Primary Care Provider Ca Goins MD Unavailable [phone] Allergies No known active allergies Medications cetirizine (ZyrTEC) 1 mg/mL syrup Take by mouth daily Active ibuprofen (ADVIL,MOTRIN) suspension 100 mg/5 mL Take by mouth every 4 (four) hours as needed for pain Active acetaminophen-as pirin-caffeine (EXCEDRIN MIGRAINE) 250-250-65 mg per tablet Take 1 tablet by mouth every 6 (six) hours as needed Active Active Problems Problem Noted Date Diagnosed Date Breast mass 07/18/2021 Surgical History Surgery Date Site/Laterality Comments TONSILLECTOMY Medical History Medical History Date Comments Headache Depression Eczema Family History Medical History Relation Name Comments Colon cancer Father's Sister Bladder Cancer Sister Relation Name Status Comments Father's Sister Sister Social History Tobacco Use Types Packs/Day Years Used Date Smoking Tobacco: Former Cigarettes 0.8 3 Personal Safety Answer Date Recorded Getting School Help Needed Not on file 05/28 Comments Unknown Sex and Gender Information Value Date Recorded Sex Assigned at Not on file Legal Sex Female 4:41 PM [employer] Gender Identity Not on file Sexual Orientation Not on file Obstetrics History Last Filed Vital Signs Vital Sign Reading Time Taken Comments Blood Pressure - - Pulse - - Temperature - - Respiratory Rate - - Oxygen Saturation - - Inhaled Oxygen Concentration - - Weight 104.3 kg (230 lb) 07/18/2021 8:10 AM [employer] Height 170.2 cm (5' 7) 07/18/2021 8:10 AM [employer] HEL[employer] Body Mass Index 36.02 07/18/2021 8:10 AM [employer] HEL[employer] Plan of Treatment Health Maintenance Due Date Last Done Comments Cervical Cancer Screening 1982 Depression Screening 1982 Hepatitis C Screening 1982 DTaP/Tdap/Td Vaccine (1 - Tdap) 1993 Varicella Vaccines (1 of 2 - 13+ 2-dose series) 12/17/1995 Hepatitis B Screening 2000 Regular Well Visit/Exam 18-64 2000 HPV Vaccines (1 - 3-dose SCD M series) 2009 Breast Cancer Screening-Mammogram 12/01/2024 024 Influenza Vaccine (#1) 2025 Pneumococcal vaccine <65 Aged Out No longer eligible based on patient's age to complete this topic Procedures Procedure Name Priority Date/Time Associated Diagnosis Comments SCREENING MAMMOGRAM BILATERAL W CANDY Schedule Routine, Read Routine (OP Routine) 12/02/2023 8:50 AM CDT Screening mammogram, encounter for from Last 3 Months or Most Recently Relevant to Health Maintenance Results * Screening Mammogram Bilateral W Candy (12/02/2023 8:50 AM CDT) Anatomical Region Laterality Modality Breast Bilateral Mammography Narrative 12/02/2023 11:42 AM CDT Mammogram Technique: Bilateral Digital Breast Tomosynthesis, Bilateral C-view 2D Screening mammogram. Views obtained: bilateral craniocaudal and bilateral mediolateral oblique. Computer Aided Detection was performed. Mammogram Findings: The present examination has been compared to prior imaging studies performed at [facility] on 10/09/2017 and 06/01/2021. There are scattered areas of fibroglandular density. There is no suspicious abnormality in either breast. Impression: There is no mammographic evidence of malignancy. Annual screening mammography is recommended. OVERALL FINAL ASSESSMENT: BI-RADS CATEGORY 1: Negative. Procedure Note Priya Burnett MD - 12/02/2023 Mammogram Technique: Bilateral Digital Breast Tomosynthesis, Bilateral C-view 2D Screening mammogram. Views obtained: bilateral craniocaudal and bilateral mediolateral oblique. Computer Aided Detection was performed. Mammogram Findings: The present examination has been compared to prior imaging studies performed at [facility]. [facility] on 10/09/2017 and 06/01/2021. There are scattered areas of fibroglandular density. There is no suspicious abnormality in either breast. Impression: There is no mammographic evidence of malignancy. Annual screening mammography is recommended. OVERALL FINAL ASSESSMENT: BI-RADS CATEGORY 1: Negative. 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
== END 2025-03-26 08:46 | disposition home or self-care (01) ==
PROVIDERS: PCP Family Medicine; Visit Provider Nurse Anesthetist, Certified Registered
DX: Z01.818 Encounter for other preprocedural examination (principal); I45.10 Unspecified right bundle-branch block
CPT/HCPCS: 93005